=== PATIENT | female | born 1990 | race Caucasian/White ===

== ENCOUNTER 2017-01-22 03:56 | Inpatient (IN) | payer MEDICAID ==
[2017-01-22] MEDS ORDERED: Carboprost Tromethamine 250 MCG/1 ML Amp IM PRN (04:30)
[2017-01-22] MEDS ORDERED: Butorphanol 1 MG/ML SDV IVPUSH PRN (04:30)
[2017-01-22] MEDS ORDERED: Water For Irrigation,Sterile 1,000 ML Container IRR PRN (04:30)
[2017-01-22] MEDS ORDERED: Oxytocin/Lactated Ringers 30 UNIT/500 ML BAG IV SCH (04:30)
[2017-01-22] MEDS ORDERED: Misoprostol 200 MCG Tab PO PRN (04:30)
[2017-01-22] MEDS ORDERED: Lidocaine 1% 50 ML MDV INJECT PRN (04:30)
[2017-01-22] MEDS ORDERED: Methylergonovine 0.2 MG/1 ML Amp IM PRN (04:30)
[2017-01-22] MEDS ORDERED: Sodium Chloride 0.9% 2.5 ML Syringe FLUSH PRN (04:30)
[2017-01-22] MEDS ORDERED: Nalbuphine 10 MG/1 ML Vial IVPUSH PRN (04:30)
[2017-01-22] MEDS ORDERED: Sodium Chloride 0.9% 10 ML Syringe FLUSH PRN (04:30)
[2017-01-22] MEDS ORDERED: Lactated Ringers 1,000 ML IV SCH (04:30)
[2017-01-22] MEDS ORDERED: Ibuprofen 800 MG Tab ONE (06:12)
[2017-01-22] MEDS ORDERED: Benzocaine/Menthol 20%-0.5% Spray 78 GM Cannister TOP PRN (06:20)
[2017-01-22] MEDS ORDERED: Docusate Sodium 100 MG Cap PO PRN (06:20)
[2017-01-22] MEDS ORDERED: Ibuprofen 400 MG Tab PO PRN (06:20)
[2017-01-22] MEDS ORDERED: Acetaminophen 500 MG Tab PO PRN (06:20)
[2017-01-22] MEDS ORDERED: oxyCODONE 5 MG Tab PO PRN (06:20)
[2017-01-22] MEDS ORDERED: Lanolin 100% Cream 7 GM Tube TOP PRN (06:20)
[2017-01-22] MEDS ORDERED: Witch Hazel Medicated Pads 40/Jar TOP PRN (06:20)
[2017-01-22] MEDS ORDERED: Bisacodyl 10 MG Supp RECTAL PRN (06:20)
[2017-01-22] MEDS: Ibuprofen 800 MG Tab PO PRN ×2 (06:29→13:44)
--- NOTE | 2017-01-22 07:31 | OR ---
SURGEON: Annamaria Hoang M.D. DATE OF PROCEDURE: 01/22/2017 PREOPERATIVE DIAGNOSES: 1. A 39 and 4-week intrauterine . 2. Active labor. POSTOPERATIVE DIAGNOSES: 1. A 39 and 4-week intrauterine . 2. Active labor. PROCEDURE: Spontaneous vaginal delivery, first-degree midline laceration repair. ANESTHESIA: Pudendal/local. ESTIMATED BLOOD LOSS: 300 mL. COMPLICATIONS: None. FINDINGS: Viable male, score 8 at 1 minute, 9 at 5 minutes. Weight of 3090 g. Spontaneous delivery, intact placenta, 3-vessel cord. DISPOSITION: Infant to nursery, mom in LDRP, stable. 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 On initial examination, she was found to be 4 cm dilated and progressed quickly to complete. heart tones 140s with variability. Group B beta strep negative. The patient was feeling sudden urge to push. She had spontaneous rupture of membranes shortly before this. Clear fluid had been returned, she was found to be complete, 100% effaced, plus 1 station, and bearing down. The patient was placed in modified dorsal lithotomy position. She was prepped and draped in the usual aseptic manner. She was requesting something for pain, and then underwent pudendal block successfully. The pudendal notch was palpated on either side of the floor of the pelvis and using 5 mL 1% lidocaine on either side infiltrated the region, the patient continued with pushing efforts, was able to deliver infant's head atraumatically, spontaneously, followed by anterior shoulder, posterior shoulder, and her remainder of body, and nuchal cord x1 was noted which was reduced manually. The infant's oropharynx, nares, bulb, suctioned. was vigorous and crying with good tone and the cord clamped x2 and cut and was handed off to his mother with attending nursing staff at her side. Cord arterial, cord venous, cord blood sampling was obtained. Light suprapubic pressure was applied while the placenta was delivered spontaneously intact. Vigorous fundal uterine massage was then applied with 30 units of Pitocin, was delivered in 500 mL. Upon inspection of cervix outside of perineum, there was found to be a first-degree midline perineal laceration, it was repaired using 3-0 Vicryl in the usual fashion. Hemostasis appears evident. Sponge count and needle count were correct. Uterus remained firm. The patient remained in LDRP. Infant in nursery. BELKIS / TEO /[id number]
[2017-01-22] MEDS: Acetaminophen 500 MG Tab PO PRN (10:34)
[2017-01-22] MEDS ORDERED: Diphtheria,Pertussis(Acell),Tetanus Vaccine 0.5 ML Syringe IM ONE (16:30)
--- NOTE | 2017-01-23 06:37 | PCM.PNPP ---
- General Info Date of Service: 01/23/17 Functional Status: Reports: pain controlled, tolerating diet, ambulating, urinating - Review of Systems General: Reports: No Symptoms HEENT: Reports: no symptoms Pulmonary: Reports: no symptoms Cardiovascular: Reports: No Symptoms Gastrointestinal: Reports: No symptoms Genitourinary: Reports: no symptoms Musculoskeletal: Reports: no symptoms Skin: Reports: no symptoms Neurological: Reports: No Symptoms Psychiatric: Reports: no symptoms - General Info Date of Service: 01/23/17 - Patient Data Vital Signs - most recent: Last Vital Signs Temp 36.5 C 01/23/17 04:00 Pulse 67 01/23/17 04:00 Resp 12 01/23/17 04:00 BP 101/57 L 01/23/17 04:00 Pulse Ox 100 01/23/17 04:00 Weight - most recent: 62.142 kg Lab Results - last 24 hrs: Laboratory Results - last 24 hr 01/23/17 Range/Units 04:16 Hgb 8.8 L (12.0-16.0) g/dL Hct 27.7 L (36.0-46.0) % Med Orders - Current: Current Medications Acetaminophen (Tylenol Extra Strength) 500 mg PO Q4H PRN PRN Reason: Pain Acetaminophen (Tylenol Extra Strength) 1,000 mg PO Q4H PRN PRN Reason: Pain Last Admin: 01/22/17 10:34 Dose: 1,000 mg Benzocaine/Menthol (Dermoplast Pain Relief 20%-0.5% Mershon) 78 gm TOP ASDIRECTED PRN PRN Reason: Perineal Comfort Measure Last Admin: 01/22/17 10:34 Dose: 1 can Bisacodyl (Dulcolax) 10 mg RECTAL .ONCE PRN PRN Reason: Constipation Carboprost Tromethamine (Hemabate Ds) 250 mcg IM ASDIRECTED PRN PRN Reason: Post Hemorrhage Docusate Sodium (Colace) 100 mg PO BID PRN PRN Reason: Constipation Emollient Ointment (Lansinoh Hpa) 0 gm TOP ASDIRECTED PRN PRN Reason: Sore Nipples Last Admin: 01/22/17 13:50 Dose: 1 tube Lactated Ringer's (Ringers, Lactated) 1,000 mls @ 150 mls/hr IV ASDIRECTED TOM Ibuprofen (Motrin) 400 mg PO Q4H PRN PRN Reason: Pain Ibuprofen (Motrin) 800 mg PO Q6H PRN PRN Reason: Pain Last Admin: 01/22/17 13:44 Dose: 800 mg Methylergonovine Maleate (Methergine) 0.2 mg IM ASDIRECTED PRN PRN Reason: Post Hemorrhage Misoprostol (Cytotec) 200 mcg PO .ONCE PRN PRN Reason: Post Hemorrhage Nalbuphine HCl (Nubain) 10 mg IVPUSH ASDIRECTED PRN PRN Reason: Pain (severe 7-10) Stop: 01/24/17 04:31 Oxycodone HCl (Oxycodone) 5 mg PO Q2H PRN PRN Reason: Pain Last Admin: 01/22/17 13:45 Dose: 5 mg Sodium Chloride (Saline Flush) 10 ml FLUSH ASDIRECTED PRN PRN Reason: Keep Vein Open Sodium Chloride (Saline Flush) 2.5 ml FLUSH ASDIRECTED PRN PRN Reason: Keep Vein Open Witch Joann (Tucks) 1 pad TOP ASDIRECTED PRN PRN Reason: comfort care Last Admin: 01/22/17 10:34 Dose: 1 tub Discontinued Medications Butorphanol Tartrate (Stadol) 1 mg IVPUSH ASDIRECTED PRN PRN Reason: Pain Diphtheria/Tetanus/Acell Pertussis (Adacel) 0.5 ml IM .ONCE ONE Stop: 01/22/17 16:31 Oxytocin/Lactated Ringer's (Pitocin In Lr 30 Units/500 Ml) 30 unit in 500 mls @ 999 mls/hr IV TITRATE TOM PRN Reason: 999 MUNITS/MIN Stop: 01/22/17 05:01 Last Admin: 01/22/17 05:11 Dose: 999 munits/min, 999 mls/hr Ibuprofen (Motrin) Confirm Administered Dose 800 mg .ROUTE .STK-MED ONE Stop: 01/22/17 06:13 Last Admin: 01/22/17 10:01 Dose: Not Given Lidocaine HCl (Xylocaine 1%) 50 ml INJECT .ONCE PRN PRN Reason: Laceration repair Last Admin: 01/22/17 05:18 Dose: 50 ml Sterile Water (Sterile Water For Irrigation) 1,000 ml IRR ASDIRECTED PRN PRN Reason: delivery Last Admin: 01/22/17 05:00 Dose: 1,000 ml - Interaction Disposition, : in Room with Family Interaction: Holding Infant Feeding: Continues to Breastfeed Support Person: Mother, Significant Other - Recovery Exam Fundal Tone: Firm Fundal Level: At Umbilicus Fundal Placement: Midline Lochia Amount: Scant Lochia Color: Rubra/Red Perineum Description: Intact, Minimal Bruising/Swelling Episiotomy/Laceration: Approximated Bladder Status: Voiding Urinary Elimination: Voided - Exam General: alert, oriented Neck: supple Lungs: Clear to auscultation, Normal respiratory effort Cardiovascular: Regular Rate, Regular Rhythm Abdomen: bowel sounds present Extremities: no calf tenderness Skin: warm, dry, intact Neurological: no new focal deficit Psy/Mental Status: alert, normal affect, normal mood - Problem List & Annotations (1) Vaginal delivery SNOMED Code(s): 237014883 Code(s): O80 - ENCOUNTER FOR FULL-TERM UNCOMPLICATED DELIVERY Status: Acute Current Visit: Yes - Problem List Review Problem List Initiated/Reviewed/Updated: Yes - My Orders Last 24 Hours: My Active Orders 01/22/17 08:08 Vaccines to be Administered [RC] PER UNIT ROUTINE 01/23/17 08:00 Ready for Discharge [RC] PER UNIT ROUTINE - Assessment Assessment:: PPD#1 SAVD Doing well Desires discharge home today - Plan Plan:: Discharge home today with follow up in 6wks Pelvic rest for 6wks Bleeding precautions given Thrombotic precautions given Infection precautions given blues/depression precautions given
[2017-01-23] MEDS: Ibuprofen 800 MG Tab PO PRN (09:22)
[2017-01-23 09:50] VITALS: BP 125/78
[2017-01-23] MEDS: Acetaminophen 500 MG Tab PO PRN (13:37)
== END 2017-01-23 14:20 | disposition home or self-care (01) | DRG 775 ==
LOC: MW.OBCHECK 03:56 → MW.OB 04:30 → OBSVTOIN 05:11 → MW.OB 05:11
PROVIDERS: ADMIT Obstetrics & Gynecology; ATTEND Obstetrics & Gynecology
PROC: 10E0XZZ Delivery of Products of Conception, External Approach (ICD-10-PCS; principal; 2017-01-22)
PROC: 0HQ9XZZ Repair Perineum Skin, External Approach (ICD-10-PCS; 2017-01-22)
DX: O70.0 First degree perineal laceration during delivery (principal); Z3A.39 39 weeks gestation of pregnancy; Z37.0 Single live birth
CPT/HCPCS: 36415; 59025; 85014; 85018; 85027; 86850; 86900; 86901; 90715; A9270-GY